=== PATIENT | female | born 1955 | race Caucasian/White ===

== ENCOUNTER 2017-01-26 07:14 | Day surgery (SDC) | payer OTHER ==
[2017-01-23 14:43] VITALS: BMI 45.7
[2017-01-26] MEDS ORDERED: MIDAZOLAM HCL 2 MG/2 ML SINGLE DOSE VIAL ONE (08:33)
[2017-01-26] MEDS ORDERED: LEVOFLOXACIN 500 MG IVPB 500 MG/100 ML BAG IVPB ONE (08:34)
[2017-01-26] MEDS ORDERED: LIDOCAINE HCL/PF 2% SDV 5ML VIAL ONE (08:34)
[2017-01-26] MEDS ORDERED: LEVOFLOXACIN 500 MG PREMIX BAG IVPB ONE (09:00)
[2017-01-26 09:38] VITALS: TEMP 97.7
[2017-01-26] MEDS ORDERED: ONDANSETRON 4 MG/2 ML VIAL IVPUSH PRN (09:56)
[2017-01-26] MEDS ORDERED: oxyCODONE HCL 5 MG TABLET PO PRN (09:56)
[2017-01-26] MEDS ORDERED: ACETAMINOPHEN 1000 MG/100 ML VIAL (NON FORMULARY) IVPB ONE (09:59)
[2017-01-26] MEDS ORDERED: LACTATED RINGERS SOLUTION 1,000 ML IV SCH (10:00)
[2017-01-26 12:30] VITALS: BP 130/70; PULSE 70
--- NOTE | 2017-01-26 15:03 | OP ---
Operative Note - Note: Operative Date: 01/26/17 Pre-Operative Diagnosis: left renal stone Operation: left eswl Findings: 13 mm x 10 mm left renal stone Post-Operative Diagnosis: Same as Pre-op Surgeon: Maninder Bridges Anesthesia: Fractional
== END 2017-01-26 12:10 | disposition home or self-care (01) ==
LOC: JASU-SURG 07:14
PROVIDERS: ATTEND Urology
PROC: 0TF4XZZ Fragmentation in Left Kidney Pelvis, External Approach (ICD-10-PCS; principal; 2017-01-26 08:45)
DX: N20.0 Calculus of kidney (principal)

== ENCOUNTER 2017-04-16 17:05 | Emergency (ER) | payer OTHER ==
--- NOTE | 2017-04-16 17:33 | PDOC ---
Rapid Medical Evaluation Time Seen by Provider: 04/16/17 17:27 Medical Evaluation: Allergies Allergy/AdvReac Type Severity Reaction Status Date / Time No Known Drug Allergies Allergy Verified 03/26/15 09:33 04/16/17 17:27 The patient presents with a chief complaint of: L shoulder pain for two weeks. Denies falling, trauma. Has not seen her PCP for this problem Taking advil liquegel with little relief. Rate the pain a 6/10. I have performed a brief in-person evaluation of this patient; Pertinent physical exam findings: ambulatory, in no respiratory distress. Pain with abduction, external rotation of L shoulder. TTP L neck, shoulder, chest. I have ordered the following: X-ray L shoulder The patient will proceed to the ED for further evaluation.
[2017-04-16 17:35] VITALS: TEMP 98.1; BMI 46.3
--- NOTE | 2017-04-16 18:29 | PDOC ---
History of Present Illness - General Chief Complaint: Pain Stated Complaint: LT ARM PAIN Time Seen by Provider: 04/16/17 17:27 History Source: Patient Exam Limitations: No Limitations - History of Present Illness Initial Comments: 04/16/17 18:28 Patient is a [61-year-old female, history of hypothyroidism, hypertension, presents with reproducible left shoulder pain for 2 weeks. Described as sharp, dull radiating out down lateral arm. Patient denies any trauma. Unable to abduct arm. Denies CP or SOB. ] Allergies: No known allergies Medications: [See medication list] Family History: Non-contributory Social History: Denies smoking, alcohol use, or IVDU Review of Systems GENERAL/CONSTITUTIONAL: [No fever or chills. No weakness. No weight change.] HEAD, EYES, EARS, NOSE AND THROAT: [No change in vision. No ear pain or discharge. No sore throat. ] CARDIOVASCULAR: [No chest pain or shortness of breath.] RESPIRATORY: [No cough, wheezing, or hemoptysis.] GASTROINTESTINAL: [No nausea, vomiting, diarrhea or constipation. No rectal bleeding.] GENITOURINARY: [No dysuria, frequency, or change in urination.] MUSCULOSKELETAL: [No joint or muscle swelling or pain. No neck or back pain. Left shoulder pain radiating down left lateral arm] SKIN : [No rash or easy bruising.] NEUROLOGIC: [No headache, vertigo, loss of consciousness, or loss of sensation.] PSYCHIATRIC: [No depression or anxiety.] ENDOCRINE: [No increased thirst. No abnormal weight change.] HEMATOLOGIC/LYMPHATIC: [No anemia, easy bleeding, or history of blood clots.] ALLERGIC/IMMUNOLOGIC: [No hives or skin allergy. No latex allergy.] Physical Exam: GENERAL: [The patient is awake, alert, and fully oriented, in no acute distress. ] EYES: [Pupils equal, round and reactive to light, extraocular movements intact, sclera anicteric, conjunctiva clear.] ENT: [Ears normal, nares patent, oropharynx clear without exudates. Moist mucous membranes. No uvula deviation] NECK: [Normal range of motion, supple without lymphadenopathy, JVD, or masses.] LUNGS: [Breath sounds equal, clear to auscultation bilaterally. No wheezes, and no crackles.] HEART: [Regular rate and rhythm, normal S1 and S2 without murmur, rub or gallop. ] ABDOMEN: [Soft, nontender, normoactive bowel sounds. No guarding, no rebound. No masses. No bruising or abrasions] RECTAL : [Guaiac negative, normal rectal tone.] MUSCULOSKELETAL: [Decreased range of motion to left arm with lateral arm pain from shoulder to elbow. Pain on palpation to the acromial bursa, No clubbing or cyanosis. No cords, erythema, or tenderness. No CVA Tenderness with fist.] NEUROLOGICAL: [Cranial nerves II through XII grossly intact. Normal speech, normal gait.] SKIN: [Warm, Dry, normal turgor, no rashes or lesions noted.] 04/16/17 19:12 Past History - Past Medical History Allergies/Adverse Reactions: Allergies Allergy/AdvReac Type Severity Reaction Status Date / Time No Known Drug Allergies Allergy Verified 04/16/17 17:28 Home Medications: Ambulatory Orders Levothyroxine [Synthroid -] 88 mcg PO DAILY 11/22/12 Metoprolol Succinate [Toprol XL -] 50 mg PO BID 11/22/12 Amlodipine Besylate 10 mg PO DAILY 03/26/15 Lisinopril/Hydrochlorothiazide [Lisinopril-Hctz 10-12.5 mg Tab] 1 each PO DAILY 03/26/15 Oxybutynin Chloride [Oxybutynin Chloride ER] 10 mg PO DAILY 01/26/17 Pantoprazole Sodium [Protonix] 40 mg PO DAILY 01/26/17 Naproxen [Naprosyn] 500 mg PO BID #20 tablet 04/16/17 Anemia: No Asthma: No Cancer: No Cardiac Disorders: Yes (INTERMITTANT CHEST PAIN-STATE) CVA: No COPD: No CHF: No Dementia: No Diabetes: No GI Disorders: Yes (GERD) Disorders: Yes (KIDNEY STONES PRESENTLY) HTN: Yes Hypercholesterolemia: No Kidney Stones: Yes Liver Disease: No Seizures: No Thyroid Disease: Yes - Surgical History Abdominal Surgery: No Appendectomy: No Cardiac Surgery: Yes (PTCA X 2 STENTS 06/09/2012) Cholecystectomy: No Lung Surgery: No Neurologic Surgery: No Orthopedic Surgery: Yes (Left Carpal Tunnel Release) - Suicide/Smoking/Psychosocial Hx Smoking Status: No Smoking History: Never smoked Number of Cigarettes Smoked Daily: 0 Hx Alcohol Use: No Drug/Substance Use Hx: No Substance Use Type: None Hx Substance Use Treatment: No *Physical Exam - Vital Signs Last Vital Signs Temp Pulse Resp BP Pulse Ox 98.1 F 80 19 172/101 99 04/16/17 17:28 04/16/17 17:28 04/16/17 17:28 04/16/17 17:28 04/16/17 17:28 Medical Decision Making - Medical Decision Making 04/16/17 18:57 A/P: Patient with pain to left shoulder, x-ray performed demonstrated tinnitus, degenerative changes on wet read. Toradol injection given, arm sling placed on. 04/16/17 19:11 Repeat BP is 179/84 I explained to patient she needs to follow-up with her PMD for further blood pressure evaluation. Patient denies any chest pain or shortness of breath. No headache. Follow-up with orthopedics for pain to left shoulder. 04/16/17 19:14 *DC/Admit/Observation/Transfer Diagnosis at time of Disposition: Shoulder pain, left Qualifiers: Chronicity: acute Qualified Code(s): M25.512 - Pain in left shoulder - Discharge Dispostion Disposition: HOME Condition at time of disposition: Stable Admit: No - Prescriptions Prescriptions: Naproxen [Naprosyn] 500 mg PO BID #20 tablet - Referrals Referrals: Dario Harris MD [Staff Physician] - - Patient Instructions Printed Discharge Instructions: DI for Shoulder Pain Additional Instructions: Please follow-up with orthopedics in one week if pain persists, do not leave the sling on all day please make sure to move arm frequently to decrease sensation of first and shoulder. Naprosyn for pain. Please follow-up with primary care doctor for blood pressure evaluation. If any headache, nausea vomiting, increased pain, any other concerns return to ER - Post Discharge Activity Forms/Work/School Notes: Back to Work
[2017-04-16] MEDS ORDERED: KETOROLAC TROMETHAMINE 60 MG/2 ML VIAL IM ONE (18:37)
[2017-04-16] MEDS ORDERED: KETOROLAC TROMETHAMINE 60 MG/2 ML VIAL ONE (18:51)
[2017-04-16 19:08] VITALS: BP 179/84; PULSE 66
== END 2017-04-16 19:17 | disposition home or self-care (01) ==
LOC: JERFT 17:05
PROC: 3E0233Z Introduction of Anti-inflammatory into Muscle, Percutaneous Approach (ICD-10-PCS; principal; 2017-04-16)
DX: I10 Essential (primary) hypertension (principal); E03.9 Hypothyroidism, unspecified; Z87.442 Personal history of urinary calculi
CPT/HCPCS: 73030-TC-LT-FY; 99281-25

== ENCOUNTER 2018-09-06 10:37 | Day surgery (SDC) | payer OTHER ==
[2018-09-03 18:17] VITALS: BMI 43.0
[2018-09-06] MEDS ORDERED: MIDAZOLAM HCL 2 MG/2 ML SINGLE DOSE VIAL ONE (12:20)
[2018-09-06] MEDS ORDERED: KETOROLAC TROMETHAMINE 30 MG/1 ML VIAL ONE (12:52)
--- NOTE | 2018-09-06 13:05 | OP ---
Operative Note - Note: Operative Date: 09/06/18 Pre-Operative Diagnosis: Left renal stone Operation: Left ESWL Findings: 7 mm upper pole Left renal stone Post-Operative Diagnosis: Same as Pre-op Surgeon: Maninder Bridges Anesthesia: Fractional Estimated Blood Loss (mls): 0 Operative Report Dictated: Yes
[2018-09-06] MEDS ORDERED: ACETAMINOPHEN 500 MG TABLET (FP) PO ONE (13:32)
[2018-09-06] MEDS ORDERED: ACETAMINOPHEN 325 MG TABLET (FP) PO ONE (13:35)
[2018-09-06 13:48] VITALS: BP 136/65; TEMP 98
[2018-09-06 15:20] VITALS: PULSE 64
--- NOTE | 2018-09-07 07:20 | OP ---
DATE OF OPERATION: 09/06/2018 PREOPERATIVE DIAGNOSIS: Left renal stone. POSTOPERATIVE DIAGNOSIS: Left renal stone. PROCEDURE: Left extracorporeal shock wave lithotripsy. ATTENDING: Yessenia Lord MD ANESTHESIA: Fractional. OPERATION WENT FOLLOWS: The patient was brought in the operating room, placed in supine position on the operating room table. Ultrasonography and fluoroscopy were performed. A 7-mm left upper pole was identified. At this point, anesthesia and preoperative antibiotics were administered. Shock wave lithotripsy was then started. Excellent fragmentation of the stone was noted under real time ultrasonography and fluoroscopy. No complications were noted. The disposition of the patient was to the recovery room. YESSENIA LORD M.D. [id number]
== END 2018-09-06 15:20 | disposition home or self-care (01) ==
LOC: JASU-SURG 10:37
PROVIDERS: ATTEND Urology
PROC: 0TF4XZZ Fragmentation in Left Kidney Pelvis, External Approach (ICD-10-PCS; principal; 2018-09-06 11:45)
DX: N20.0 Calculus of kidney (principal)

== ENCOUNTER 2020-05-28 04:27 | Day surgery (SDC) | payer OTHER ==
[2020-05-23 11:49] VITALS: BMI 46.8
[2020-05-28] MEDS ORDERED: oxyCODONE HCL 5 MG TABLET PO ONE (16:00)
[2020-05-28] MEDS ORDERED: oxyCODONE HCL 5 MG TABLET ONE (16:00)
[2020-05-28 16:46] VITALS: PULSE 77
[2020-05-28 16:49] VITALS: BP 153/82; TEMP 97.4
== END 2020-05-28 17:25 | disposition home or self-care (01) ==
LOC: JASU-SURG 04:27
PROVIDERS: ATTEND Urology
PROC: 0TF3XZZ Fragmentation in Right Kidney Pelvis, External Approach (ICD-10-PCS; principal; 2020-05-28 13:30)
DX: N20.0 Calculus of kidney (principal)

== ENCOUNTER 2020-12-24 04:36 | Day surgery (SDC) | payer OTHER ==
[2020-12-20 09:53] VITALS: BMI 38.2
[2020-12-24] MEDS ORDERED: MIDAZOLAM HCL 2 MG/2 ML SINGLE DOSE VIAL ONE (10:47)
[2020-12-24] MEDS ORDERED: ACETAMINOPHEN 325 MG TABLET (FP) ONE (13:33)
[2020-12-24] MEDS ORDERED: ACETAMINOPHEN 325 MG TABLET (FP) PO ONE (14:30)
[2020-12-24 16:09] VITALS: BP 153/69; PULSE 72; TEMP 98.2
== END 2020-12-24 14:55 | disposition home or self-care (01) ==
LOC: JASU-SURG 04:36
PROVIDERS: ATTEND Urology
PROC: 0TF4XZZ Fragmentation in Left Kidney Pelvis, External Approach (ICD-10-PCS; principal; 2020-12-24 11:00)
DX: N20.0 Calculus of kidney (principal)

== ENCOUNTER 2022-06-17 04:43 | Day surgery (SDC) | payer OTHER ==
[2022-06-13 09:07] VITALS: BMI 40.9
[2022-06-17 15:53] VITALS: BP 132/85; PULSE 66; RESP 18
[2022-06-17 16:15] VITALS: TEMP 97.1
== END 2022-06-17 16:32 | disposition home or self-care (01) ==
LOC: JASU-ENDO 04:43
PROVIDERS: ATTEND Student in an Organized Health Care Education/Training Program
PROC: 0DB78ZX Excision of Stomach, Pylorus, Via Natural or Artificial Opening Endoscopic, Diagnostic (ICD-10-PCS; 2022-06-17)
PROC: 0DB68ZX Excision of Stomach, Via Natural or Artificial Opening Endoscopic, Diagnostic (ICD-10-PCS; 2022-06-17)
PROC: 0DB38ZX Excision of Lower Esophagus, Via Natural or Artificial Opening Endoscopic, Diagnostic (ICD-10-PCS; principal; 2022-06-17 14:00)
DX: K21.00 Gastro-esophageal reflux disease with esophagitis, without bleeding (principal); K44.9 Diaphragmatic hernia without obstruction or gangrene; K29.50 Unspecified chronic gastritis without bleeding
CPT/HCPCS: 88305-TC; 88342-TC

== ENCOUNTER 2022-08-18 03:55 | Day surgery (SDC) | payer OTHER ==
[2022-08-14 13:19] VITALS: BMI 40.7
[2022-08-18] MEDS ORDERED: ONDANSETRON 4 MG/2 ML VIAL ONE (08:28)
[2022-08-18] MEDS ORDERED: MIDAZOLAM HCL 2 MG/2 ML SINGLE DOSE VIAL ONE (08:28)
[2022-08-18 09:20] VITALS: RESP 18
[2022-08-18] MEDS ORDERED: ACETAMINOPHEN 500 MG TABLET (FP) ONE (09:35)
[2022-08-18] MEDS ORDERED: ACETAMINOPHEN 500 MG TABLET (FP) PO ONE (10:00)
[2022-08-18 12:44] VITALS: BP 104/54; PULSE 76; TEMP 98.6
== END 2022-08-18 11:10 | disposition home or self-care (01) ==
LOC: JASU-SURG 03:55
PROVIDERS: ATTEND Urology
PROC: 0TF4XZZ Fragmentation in Left Kidney Pelvis, External Approach (ICD-10-PCS; principal; 2022-08-18 08:30)
DX: N20.0 Calculus of kidney (principal)

== ENCOUNTER 2023-04-26 22:49 | Observation (INO) | payer OTHER ==
[2023-04-27 00:13] LABS: BASO % 0.6 % (0-2.0); EOS % 6.6 % (0-4.5); HEMATOCRIT 31.8 % (32.4-45.2); HEMOGLOBIN 10.5 GM/dL (10.7-15.3); LYMPH % 22.7 % (8-40); MCH 30.5 pg (25.7-33.7); MEAN CELL VOLUME 92.5 fl (80-96); MEAN PLT VOLUME 7.3 fl (7.5-11.1); MONO % 9.8 % (3.8-10.2); NEUT % 60.3 % (42.8-82.8); PLATELET COUNT 146 10^3/uL (134-434); RBC 3.44 M/mm3 (3.60-5.2); RDW 14.2 % (11.6-15.6); WHITE BLOOD COUNT 9.7 K/mm3 (4.0-10.0)
[2023-04-27 00:22] LABS: INR 1.11 (0.83-1.09); PROTHROMBIN TIME (PATIENT) 12.9 SEC (9.7-13.0)
[2023-04-27 00:26] LABS: POTASSIUM 4.1 mmol/L (3.5-5.1)
[2023-04-27 00:28] LABS: CALCIUM 8.2 mg/dL (8.5-10.1)
[2023-04-27 00:29] LABS: ALBUMIN 3.2 g/dl (3.4-5.0); BLOOD UREA NITROGEN 28.4 mg/dL (7-18)
[2023-04-27 00:32] LABS: CREATININE 1.7 mg/dL (0.55-1.3)
[2023-04-27 00:33] LABS: TOT PROT 6.8 g/dl (6.4-8.2)
[2023-04-27 00:34] LABS: BILIRUBIN,TOTAL 0.2 mg/dL (0.2-1)
[2023-04-27 02:51] LABS: BASO % 0.6 % (0-2.0); EOS % 6.4 % (0-4.5); HEMATOCRIT 29.7 % (32.4-45.2); HEMOGLOBIN 9.7 GM/dL (10.7-15.3); LYMPH % 23.1 % (8-40); MCH 30.2 pg (25.7-33.7); MCHC 32.8 g/dl (32.0-36.0); MONO % 8.4 % (3.8-10.2); NEUT % 61.5 % (42.8-82.8); PLATELET COUNT 142 10^3/uL (134-434); RBC 3.23 M/mm3 (3.60-5.2); RDW 14.3 % (11.6-15.6); WHITE BLOOD COUNT 9.1 K/mm3 (4.0-10.0)
[2023-04-27] MEDS ORDERED: ACETAMINOPHEN INJECTION 100 ML IVPB ONE (05:10)
[2023-04-27] MEDS: ACETAMINOPHEN 1000 MG/100 ML BAG IVPB ONE (05:17)
[2023-04-27] MEDS: ACETAMINOPHEN 325 MG TABLET (FP) PO ONE (05:17)
[2023-04-27 05:39] LABS: PH,URINE 5.5 (5.0-8.0); URINE APPEARANCE CLEAR; URINE BILIRUBIN NEGATIVE (NEGATIVE); URINE COLOR YELLOW; URINE GLUCOSE (UA) NEGATIVE (NEGATIVE); URINE KETONE NEGATIVE (NEGATIVE); URINE LEUK ESTERASE NEGATIVE (NEGATIVE); URINE NITRITE NEGATIVE (NEGATIVE); URINE PROTEIN NEGATIVE (NEGATIVE); URINE UROBILINOGEN 0.2 mg/dL (0.2-1.0)
[2023-04-27] MEDS: SODIUM CHLORIDE 1,000 ML IV SCH (06:41)
[2023-04-27 06:54] LABS: HEMATOCRIT 29.6 % (32.4-45.2); HEMOGLOBIN 9.6 GM/dL (10.7-15.3); MCH 29.8 pg (25.7-33.7); MCHC 32.3 g/dl (32.0-36.0); MEAN CELL VOLUME 92.2 fl (80-96); MEAN PLT VOLUME 7.4 fl (7.5-11.1); PLATELET COUNT 140 10^3/uL (134-434); RBC 3.21 M/mm3 (3.60-5.2); RDW 13.9 % (11.6-15.6)
[2023-04-27] MEDS ORDERED: CHLORTHALIDONE 50 MG TABLET PO SCH (10:00)
[2023-04-27 10:20] VITALS: BMI 35.2
[2023-04-27] MEDS: PANTOPRAZOLE 40 MG TABLET PO SCH (11:07)
[2023-04-27 12:28] LABS: BASO % 0.7 % (0-2.0); EOS % 7.2 % (0-4.5); HEMATOCRIT 28.4 % (32.4-45.2); HEMOGLOBIN 9.1 GM/dL (10.7-15.3); LYMPH % 29.4 % (8-40); MCH 29.5 pg (25.7-33.7); MCHC 32.1 g/dl (32.0-36.0); MEAN CELL VOLUME 91.8 fl (80-96); MEAN PLT VOLUME 6.9 fl (7.5-11.1); MONO % 8.2 % (3.8-10.2); NEUT % 54.5 % (42.8-82.8); PLATELET COUNT 132 10^3/uL (134-434); RDW 14.1 % (11.6-15.6); WHITE BLOOD COUNT 7.7 K/mm3 (4.0-10.0)
[2023-04-27] MEDS: CHLORTHALIDONE 25 MG TABLET PO SCH (13:18)
[2023-04-27 18:07] LABS: BASO % 0.7 % (0-2.0); EOS % 9.1 % (0-4.5); HEMATOCRIT 30.7 % (32.4-45.2); HEMOGLOBIN 10.1 GM/dL (10.7-15.3); LYMPH % 27.7 % (8-40); MCH 30.3 pg (25.7-33.7); MCHC 32.9 g/dl (32.0-36.0); MEAN CELL VOLUME 91.9 fl (80-96); MEAN PLT VOLUME 7.1 fl (7.5-11.1); MONO % 6.1 % (3.8-10.2); NEUT % 56.4 % (42.8-82.8); PLATELET COUNT 148 10^3/uL (134-434); RBC 3.34 M/mm3 (3.60-5.2); RDW 14.1 % (11.6-15.6); WHITE BLOOD COUNT 7.5 K/mm3 (4.0-10.0)
[2023-04-27] MEDS: ATORVASTATIN CA 20 MG TABLET (FP) PO SCH (21:19)
[2023-04-28 09:17] LABS: BASO % 0.5 % (0-2.0); EOS % 7.7 % (0-4.5); LYMPH % 18.7 % (8-40); MCH 30.4 pg (25.7-33.7); MCHC 33.2 g/dl (32.0-36.0); MEAN CELL VOLUME 91.8 fl (80-96); MEAN PLT VOLUME 7.1 fl (7.5-11.1); NEUT % 65.1 % (42.8-82.8); PLATELET COUNT 142 10^3/uL (134-434); RBC 3.27 M/mm3 (3.60-5.2); RDW 14.1 % (11.6-15.6); WHITE BLOOD COUNT 7.5 K/mm3 (4.0-10.0)
[2023-04-28 10:01] LABS: POTASSIUM 4.9 mmol/L (3.5-5.1)
[2023-04-28 10:12] LABS: CALCIUM 9.2 mg/dL (8.5-10.1)
[2023-04-28 10:13] LABS: ALBUMIN 3.2 g/dl (3.4-5.0); MAGNESIUM 1.9 mg/dL (1.8-2.4)
[2023-04-28 10:16] LABS: CREATININE 1.3 mg/dL (0.55-1.3); PHOSPHOROUS 3.6 mg/dL (2.5-4.9)
[2023-04-28 10:17] LABS: BILIRUBIN,TOTAL 0.3 mg/dL (0.2-1); TOT PROT 6.8 g/dl (6.4-8.2)
[2023-04-28 10:43] LABS: BLOOD UREA NITROGEN 19.3 mg/dL (7-18)
[2023-04-28] MEDS: ACETAMINOPHEN 1000 MG/100 ML BAG IVPB ONE (10:58)
[2023-04-28] MEDS: amLODIPine BESYLATE 10 MG TABLET (FP) PO SCH (10:59)
[2023-04-28] MEDS ORDERED: POLYETHYLENE GLYCOL (HEALTHYLAX) 3350 17 GM PACKET PO PRN (14:14)
[2023-04-28] MEDS: ASPIRIN COATED 81 MG TABLET.EC PO SCH (14:32)
[2023-04-28 18:01] LABS: HEMATOCRIT 32.8 % (32.4-45.2); HEMOGLOBIN 10.5 GM/dL (10.7-15.3); MCH 29.7 pg (25.7-33.7); MCHC 32.2 g/dl (32.0-36.0); MEAN CELL VOLUME 92.3 fl (80-96); MEAN PLT VOLUME 7.5 fl (7.5-11.1); PLATELET COUNT 154 10^3/uL (134-434); RBC 3.55 M/mm3 (3.60-5.2); WHITE BLOOD COUNT 8.3 K/mm3 (4.0-10.0)
[2023-04-28] MEDS: POLYETHYLENE GLYCOL (HEALTHYLAX) 3350 17 GM PACKET PO SCH (18:49)
[2023-04-29 06:52] VITALS: RESP 18; TEMP 98.4
[2023-04-29 08:33] LABS: BASO % 0.5 % (0-2.0); EOS % 5.9 % (0-4.5); HEMATOCRIT 30.3 % (32.4-45.2); HEMOGLOBIN 10.1 GM/dL (10.7-15.3); LYMPH % 25.3 % (8-40); MCH 30.5 pg (25.7-33.7); MCHC 33.3 g/dl (32.0-36.0); MEAN CELL VOLUME 91.6 fl (80-96); MEAN PLT VOLUME 7.3 fl (7.5-11.1); MONO % 7.5 % (3.8-10.2); NEUT % 60.8 % (42.8-82.8); PLATELET COUNT 142 10^3/uL (134-434); RDW 13.9 % (11.6-15.6); WHITE BLOOD COUNT 7.7 K/mm3 (4.0-10.0)
[2023-04-29 09:02] LABS: POTASSIUM 4.2 mmol/L (3.5-5.1)
[2023-04-29 09:06] LABS: CALCIUM 9.1 mg/dL (8.5-10.1)
[2023-04-29 09:07] LABS: BLOOD UREA NITROGEN 21.3 mg/dL (7-18)
[2023-04-29 09:10] LABS: CREATININE 1.4 mg/dL (0.55-1.3)
[2023-04-29] MEDS: ACETAMINOPHEN 325 MG TABLET (FP) PO PRN (12:04)
[2023-04-29 14:25] VITALS: BP 128/61; PULSE 82
== END 2023-04-29 17:50 | disposition home or self-care (01) ==
LOC: JER 22:49 → JERBED 04-27 03:41 → J7W 04-27 08:44
PROVIDERS: ADMIT Internal Medicine; ATTEND Internal Medicine
PROC: 3E033NZ Introduction of Analgesics, Hypnotics, Sedatives into Peripheral Vein, Percutaneous Approach (ICD-10-PCS; principal; 2023-04-27)
DX: K92.1 Melena (principal); K57.91 Diverticulosis of intestine, part unspecified, without perforation or abscess with bleeding; K63.5 Polyp of colon; D64.9 Anemia, unspecified; I73.9 Peripheral vascular disease, unspecified; K21.9 Gastro-esophageal reflux disease without esophagitis; E78.5 Hyperlipidemia, unspecified; I10 Essential (primary) hypertension; Z87.442 Personal history of urinary calculi
CPT/HCPCS: 36415; 80048; 80053; 81003; 82272; 83735; 84100; 84439; 84443; 84484; 85025; 85027; 85610; 86850; 86900; 86901; 93005; 93010; 96361; 96374; 99285-25; G0378; J0131

== ENCOUNTER 2024-08-20 13:37 | Inpatient (IN) | payer OTHER ==
[2024-08-20 14:58] LABS: ABSOLUTE IMMATURE GRANULOCYTES 0.04 x10^3/uL (0.0-0.031); BASOPHILS # 0.05 x10^3/uL (0.01-0.08); EOSINOPHIL % 5.3 % (0.7-5.8); EOSINOPHILS # 0.51 x10^3/uL (0.04-0.36); MCHC 29.8 g/dl (32.2-35.5); MEAN CELL VOLUME 97.1 fl (79.4-94.8); MEAN PLT VOLUME 9.7 fl (9.4-12.3); MONOCYTE # 0.71 x10^3/uL (0.24-0.86); MONOCYTE % 7.3 % (4.7-12.5); RDW 16.2 % (12.4-16.4)
[2024-08-20 15:23] LABS: CO2 22.0 mmol/L (21-32); GLUCOSE,RANDOM 100.0 mg/dL (74-106)
[2024-08-20 15:26] LABS: CREATININE 2.2 mg/dL (0.55-1.3); SGOT/AST 21.0 U/L (15-37); SGPT/ALT 21.0 U/L (13-61)
[2024-08-20 15:27] LABS: TOT PROT 6.1 g/dl (6.4-8.2)
[2024-08-20 15:29] LABS: ALK PHOS 97.0 U/L (45-117)
[2024-08-20 15:31] LABS: N-TERMINAL BNP 259.4 pg/ml (5-125)
[2024-08-20 15:38] LABS: EPI CELLS >36 /uL (0-25.1); HYALINE CASTS 0 /uL (0-3.1); URINE APPEARANCE CLEAR; URINE BACTERIA 749 /uL (0-1359); URINE BILIRUBIN NEGATIVE (NEGATIVE); URINE COLOR YELLOW; URINE GLUCOSE (UA) NEGATIVE (NEGATIVE); URINE KETONE NEGATIVE (NEGATIVE); URINE LEUK ESTERASE 1+ (NEGATIVE); URINE NITRITE NEGATIVE (NEGATIVE); URINE PROTEIN TRACE (NEGATIVE); URINE RBC 8 /uL (0-23.9); URINE UROBILINOGEN 0.2 mg/dL (0.2-1.0); URINE WBC 33 /uL (0-25.8)
[2024-08-20] MEDS ORDERED: DEXTROSE 50%-WATER 25 GM/50 ML DISP.SYRIN ONE (16:28)
[2024-08-20] MEDS ORDERED: SODIUM ZIRCONIUM CYCLOSILICATE (LOKELMA) 10 GM PACKET ONE (16:28)
[2024-08-20] MEDS ORDERED: INSULIN REGULAR HUMAN 100 UNITS/ML *VIAL ONE (16:29)
[2024-08-20] MEDS: DEXTROSE 50%-WATER - 25 GM/50 ML VIAL IVPUSH ONE (17:01)
[2024-08-20] MEDS: INSULIN REGULAR HUMAN 100 UNITS/ML *VIAL IVPUSH ONE (17:01)
[2024-08-20] MEDS ORDERED: CEFTRIAXONE 1 GM/50 ML BAG ONE (17:04)
[2024-08-20] MEDS: SODIUM ZIRCONIUM CYCLOSILICATE (LOKELMA) 5 GM PACKET PO ONE (17:10)
[2024-08-20 18:51] LABS: CO2 21.0 mmol/L (21-32); GLUCOSE,RANDOM 82.0 mg/dL (74-106)
[2024-08-20 18:54] LABS: CREATININE 2.0 mg/dL (0.55-1.3)
[2024-08-20] MEDS ORDERED: DEXTROSE 5%-0.45% SALINE 1,000 ML IV SCH (20:30)
[2024-08-20] MEDS: ATORVASTATIN CA 20 MG TABLET (FP) PO SCH (21:53)
[2024-08-20] MEDS: SODIUM CHLORIDE 1,000 ML IV SCH (21:53)
[2024-08-20] MEDS: DEXTROSE 5%-0.45% SALINE 1,000 ML IV SCH (21:53)
[2024-08-20] MEDS: HEPARIN NA (PORCINE) 5,000 UNITS/ML 1ML VIAL SQ SCH (21:53)
[2024-08-20] MEDS: GABAPENTIN 300 MG CAPSULE PO SCH (21:53)
[2024-08-20] MEDS ORDERED: ATORVASTATIN CA 20 MG TABLET (FP) ONE (21:57)
[2024-08-20] MEDS ORDERED: GABAPENTIN 300 MG CAPSULE ONE (21:57)
[2024-08-20] MEDS ORDERED: HEPARIN NA (PORCINE) 5,000 UNITS/ML 1ML VIAL ONE (21:58)
[2024-08-21 00:39] VITALS: BMI 34.5
[2024-08-21 08:47] LABS: MCHC 29.9 g/dl (32.2-35.5); MEAN CELL VOLUME 96.9 fl (79.4-94.8); MEAN PLT VOLUME 9.1 fl (9.4-12.3); RDW 16.2 % (12.4-16.4)
[2024-08-21 09:15] LABS: CO2 22.0 mmol/L (21-32); GLUCOSE,RANDOM 90.0 mg/dL (74-106)
[2024-08-21 09:17] LABS: IRON SERUM 28.0 ug/dL (50-175)
[2024-08-21 09:18] LABS: CREATININE 1.7 mg/dL (0.55-1.3); SGPT/ALT 19.0 U/L (13-61)
[2024-08-21 09:19] LABS: SGOT/AST 19.0 U/L (15-37)
[2024-08-21 09:20] LABS: TOT PROT 6.2 g/dl (6.4-8.2)
[2024-08-21 09:21] LABS: ALK PHOS 102.0 U/L (45-117)
[2024-08-21] MEDS: ASPIRIN COATED 81 MG TABLET.EC PO SCH (09:28)
[2024-08-21] MEDS: traZODone HCL 50 MG TABLET (FP) PO SCH (09:29)
[2024-08-21] MEDS: PANTOPRAZOLE 40 MG TABLET PO SCH (09:29)
[2024-08-21] MEDS: CEFTRIAXONE 1 GM in DEXTROSE 5%-WATER - 50 ML IVPB SCH (09:29)
[2024-08-21] MEDS: LEVOTHYROXINE NA 125 MCG TABLET (FP) PO SCH (09:29)
[2024-08-21] MEDS: ACETAMINOPHEN 325 MG TABLET (FP) PO PRN (13:46)
[2024-08-21] MEDS ORDERED: SODIUM ZIRCONIUM CYCLOSILICATE (LOKELMA) 5 GM PACKET PO ONE (16:18)
[2024-08-21] MEDS: SODIUM CHLORIDE 1,000 ML IV SCH (18:41)
[2024-08-21] MEDS: IRON SUCROSE INJECTION 100 MG in SODIUM CHLORIDE 95 ML IVPB ONE (21:42)
[2024-08-21] MEDS: TAMSULOSIN HCL 0.4 MG CAP PO ONE (21:43)
[2024-08-22 08:30] LABS: ABSOLUTE IMMATURE GRANULOCYTES 0.03 x10^3/uL (0.0-0.031); BASOPHILS # 0.05 x10^3/uL (0.01-0.08); EOSINOPHIL % 7.4 % (0.7-5.8); EOSINOPHILS # 0.53 x10^3/uL (0.04-0.36); MCHC 29.7 g/dl (32.2-35.5); MEAN CELL VOLUME 95.6 fl (79.4-94.8); MEAN PLT VOLUME 9.1 fl (9.4-12.3); MONOCYTE # 0.73 x10^3/uL (0.24-0.86); MONOCYTE % 10.2 % (4.7-12.5); RDW 16.0 % (12.4-16.4)
[2024-08-22 08:47] LABS: INR 1.04 (0.83-1.09); PROTHROMBIN TIME (PATIENT) 11.3 SEC (9.7-13.0)
[2024-08-22 08:57] LABS: GLUCOSE,RANDOM 95.0 mg/dL (74-106)
[2024-08-22 08:58] LABS: CO2 22.0 mmol/L (21-32)
[2024-08-22 09:00] LABS: CREATININE 1.5 mg/dL (0.55-1.3); SGOT/AST 18.0 U/L (15-37); SGPT/ALT 22.0 U/L (13-61)
[2024-08-22 09:01] LABS: TOT PROT 6.3 g/dl (6.4-8.2)
[2024-08-22 09:03] LABS: ALK PHOS 83.0 U/L (45-117)
[2024-08-22] MEDS: CEFTRIAXONE 2 GM-D5W BAG 2 GM/50 ML BAG IVPB SCH (09:15)
[2024-08-22 09:24] LABS: ERYTHROCYTE SEDIMENTATION RATE 46 mm/hr (0-30)
[2024-08-22 19:58] LABS: HCV DIAGNOSTIC IN-HOUSE W/RFLX NON-REACTIVE (NONREACTIVE)
[2024-08-22 20:11] LABS: HIV INTERPRETATION NEGATIVE (NEGATIVE)
[2024-08-23 08:45] LABS: ABSOLUTE IMMATURE GRANULOCYTES 0.13 x10^3/uL (0.0-0.031); BASOPHILS # 0.08 x10^3/uL (0.01-0.08); EOSINOPHIL % 7.0 % (0.7-5.8); EOSINOPHILS # 0.60 x10^3/uL (0.04-0.36); MCHC 30.4 g/dl (32.2-35.5); MEAN CELL VOLUME 94.6 fl (79.4-94.8); MEAN PLT VOLUME 8.7 fl (9.4-12.3); MONOCYTE # 0.89 x10^3/uL (0.24-0.86); MONOCYTE % 10.4 % (4.7-12.5); RDW 15.6 % (12.4-16.4)
[2024-08-23 09:10] LABS: GLUCOSE,RANDOM 104.0 mg/dL (74-106)
[2024-08-23 09:12] LABS: CO2 21.0 mmol/L (21-32)
[2024-08-23 09:13] LABS: CREATININE 1.5 mg/dL (0.55-1.3); SGPT/ALT 25.0 U/L (13-61)
[2024-08-23 09:15] LABS: SGOT/AST 23.0 U/L (15-37); TOT PROT 6.6 g/dl (6.4-8.2)
[2024-08-23 09:16] LABS: ALK PHOS 89.0 U/L (45-117)
[2024-08-23] MEDS ORDERED: IRON SUCROSE INJECTION 200 MG in SODIUM CHLORIDE 100 ML IVPB ONE (11:51)
[2024-08-23] MEDS: IRON SUCROSE INJECTION 200 MG in SODIUM CHLORIDE 100 ML IVPB ONE (13:16)
[2024-08-23] MEDS: CYANOCOBALAMIN (VITAMIN B-12) 1000 MCG/1 ML VIAL IM ONE (13:35)
[2024-08-24] MEDS ORDERED: ONDANSETRON 4 MG/2 ML VIAL ONE (07:09)
[2024-08-24] MEDS ORDERED: DEXAMETHASONE SOD PHOSPHATE 4 MG/1 ML VIAL ONE (07:09)
[2024-08-24] MEDS ORDERED: LIDOCAINE HCL/PF 2% SDV 5ML VIAL ONE (07:09)
[2024-08-24] MEDS ORDERED: GLYCOPYRROLATE 0.2 MG/1 ML VIAL ONE (07:09)
[2024-08-24] MEDS ORDERED: PROPOFOL 20 ML ONE (07:10)
[2024-08-24] MEDS ORDERED: MIDAZOLAM HCL 2 MG/2 ML SINGLE DOSE VIAL ONE (07:13)
[2024-08-24] MEDS ORDERED: ACETAMINOPHEN INJECTION 100 ML ONE (07:19)
[2024-08-24] MEDS: GENTAMICIN SO4 80 MG/2 ML VIAL IVPB ONE (07:22)
[2024-08-24] MEDS ORDERED: GENTAMICIN SO4 80 MG/2 ML VIAL ONE (07:22)
[2024-08-24] MEDS ORDERED: LACTATED RINGERS SOLUTION 1,000 ML IV SCH (07:30)
[2024-08-24] MEDS: SODIUM CHLORIDE 1,000 ML IV SCH (08:35)
[2024-08-24] MEDS: PANTOPRAZOLE 40 MG TABLET PO SCH (09:14)
[2024-08-24] MEDS: traZODone HCL 50 MG TABLET (FP) PO SCH (09:14)
[2024-08-24] MEDS: GABAPENTIN 300 MG CAPSULE PO SCH (09:15)
[2024-08-24] MEDS: LEVOTHYROXINE NA 125 MCG TABLET (FP) PO SCH (09:15)
[2024-08-24] MEDS: ASPIRIN COATED 81 MG TABLET.EC PO SCH (09:15)
[2024-08-24 11:20] LABS: ABSOLUTE IMMATURE GRANULOCYTES 0.14 x10^3/uL (0.0-0.031); BASOPHILS # 0.05 x10^3/uL (0.01-0.08); EOSINOPHIL % 2.2 % (0.7-5.8); EOSINOPHILS # 0.21 x10^3/uL (0.04-0.36); MCHC 29.6 g/dl (32.2-35.5); MEAN CELL VOLUME 96.8 fl (79.4-94.8); MEAN PLT VOLUME 8.9 fl (9.4-12.3); MONOCYTE # 0.18 x10^3/uL (0.24-0.86); MONOCYTE % 1.9 % (4.7-12.5); RDW 15.9 % (12.4-16.4)
[2024-08-24] MEDS: ACETAMINOPHEN 325 MG TABLET (FP) PO PRN (11:23)
[2024-08-24 12:03] LABS: CO2 21.0 mmol/L (21-32)
[2024-08-24 12:04] LABS: GLUCOSE,RANDOM 141.0 mg/dL (74-106)
[2024-08-24 12:07] LABS: CREATININE 1.5 mg/dL (0.55-1.3)
[2024-08-24] MEDS ORDERED: IRON SUCROSE INJECTION 200 MG in SODIUM CHLORIDE 100 ML IVPB ONE (14:00)
[2024-08-24] MEDS: IRON SUCROSE INJECTION 200 MG in SODIUM CHLORIDE 100 ML IVPB ONE (14:14)
[2024-08-24] MEDS: ATORVASTATIN CA 20 MG TABLET (FP) PO SCH (21:10)
[2024-08-25 07:56] LABS: MCHC 30.5 g/dl (32.2-35.5); MEAN CELL VOLUME 96.1 fl (79.4-94.8); MEAN PLT VOLUME 9.1 fl (9.4-12.3); RDW 15.9 % (12.4-16.4)
[2024-08-25 09:35] LABS: CO2 20.0 mmol/L (21-32); GLUCOSE,RANDOM 93.0 mg/dL (74-106)
[2024-08-25 09:37] LABS: CREATININE 1.5 mg/dL (0.55-1.3)
[2024-08-25] MEDS: predniSONE 20 MG TABLET (UD) PO SCH (11:35)
[2024-08-25] MEDS ORDERED: IRON SUCROSE INJECTION 200 MG in SODIUM CHLORIDE 100 ML IVPB ONE (14:00)
[2024-08-25] MEDS: IRON SUCROSE INJECTION 200 MG in SODIUM CHLORIDE 100 ML IVPB ONE (14:00)
[2024-08-25 15:11] LABS: IG A QN SERUM. 189 mg/dL (87-352)
[2024-08-25 18:25] VITALS: RESP 18
[2024-08-26 08:48] LABS: ABSOLUTE IMMATURE GRANULOCYTES 0.11 x10^3/uL (0.0-0.031); BASOPHILS # 0.05 x10^3/uL (0.01-0.08); EOSINOPHIL % 4.1 % (0.7-5.8); EOSINOPHILS # 0.43 x10^3/uL (0.04-0.36); MCHC 30.2 g/dl (32.2-35.5); MEAN CELL VOLUME 95.5 fl (79.4-94.8); MEAN PLT VOLUME 8.9 fl (9.4-12.3); MONOCYTE # 1.10 x10^3/uL (0.24-0.86); MONOCYTE % 10.5 % (4.7-12.5); RDW 16.1 % (12.4-16.4)
[2024-08-26 09:41] LABS: CO2 23.0 mmol/L (21-32); GLUCOSE,RANDOM 84.0 mg/dL (74-106)
[2024-08-26 09:44] LABS: CREATININE 1.4 mg/dL (0.55-1.3)
[2024-08-26] MEDS: MAGNESIUM OXIDE 400 MG TABLET (FP) PO ONE (11:04)
[2024-08-26] MEDS: MAGNESIUM SULF 50% (8.12 MEQ/2 ML-1 GM VIAL) IVPB ONE (11:09)
[2024-08-26] MEDS: predniSONE 20 MG TABLET (UD) PO SCH (11:09)
[2024-08-26] MEDS: LACTULOSE 20 GM/30 ML UDC (FOR ORAL USE ONLY) PO ONE (13:35)
[2024-08-26 14:36] VITALS: BP 118/60; PULSE 73; TEMP 99
[2024-08-29 18:11] LABS: METHYLMALONIC ACID- 504 nmol/L (0-378)
[2024-09-02 13:10] LABS: CA OXALATE MONOHYDR. 100 % (.); SIZE 3x3 mm (.); WEIGHT 10 mg (.)
== END 2024-08-26 14:45 | disposition home or self-care (01) | DRG 660 ==
LOC: JER 13:37 → JERBED 19:32 → UNDOADMOB 19:32 → INTOOBSV 19:32 → JERBED 08-21 00:04 → J6S 08-21 00:04 → JERBED 08-21 17:11 → J6S 08-21 17:11 → OBSVTOIN 08-25 14:53
PROVIDERS: ADMIT Hospitalist; ATTEND Internal Medicine
PROC: 0TF Urinary System, Fragmentation (ICD-10-PCS; 2024-08-24)
PROC: 0TJB8ZZ Inspection of Bladder, Via Natural or Artificial Opening Endoscopic (ICD-10-PCS; 2024-08-24)
PROC: 0T778DZ Dilation of Left Ureter with Intraluminal Device, Via Natural or Artificial Opening Endoscopic (ICD-10-PCS; principal; 2024-08-24 07:00)
DX: N20.1 Calculus of ureter (principal); N17.9 Acute kidney failure, unspecified; N39.0 Urinary tract infection, site not specified; D50.9 Iron deficiency anemia, unspecified; D69.6 Thrombocytopenia, unspecified; I10 Essential (primary) hypertension; E78.5 Hyperlipidemia, unspecified; I12.9 Hypertensive chronic kidney disease with stage 1 through stage 4 chronic kidney disease, or unspecified chronic kidney disease; E03.9 Hypothyroidism, unspecified; E66.9 Obesity, unspecified; Z68.34 Body mass index [BMI] 34.0-34.9, adult; N18.9 Chronic kidney disease, unspecified; I73.9 Peripheral vascular disease, unspecified; K21.9 Gastro-esophageal reflux disease without esophagitis
CPT/HCPCS: 36415; 71045-TC-FY; 72148-TC; 74176-TC; 76000-TC-FY; 76775-TC; 80048; 80053; 81003; 82360; 82607; 82728; 82746; 82784; 82962; 83010; 83540; 83550; 83735; 83880; 83921; 84100; 84155; 84165; 84436; 84443; 84484; 85025; 85027; 85610; 85651; 86140; 86334; 86803; 87040; 87086; 87389; 88300-TC; 93005; 93010; 93970-TC; 94760; 97116-GP; 97161-GP; 99285-25; C1758; C2617; G0378; J1756

== ENCOUNTER 2024-10-03 13:24 | Inpatient (IN) | payer OTHER ==
[2024-10-03 14:47] LABS: MCHC 29.7 g/dl (32.2-35.5); MEAN CELL VOLUME 102.3 fl (79.4-94.8); MEAN PLT VOLUME 8.8 fl (9.4-12.3); RDW 16.0 % (12.4-16.4)
[2024-10-03 14:50] LABS: BG HCT 32.0 % (32.4-45.2); VENOUS BASE EXCESS -10.3 mmol/L (-2-2); VENOUS O2 SATURATION 50.8 % (70-80); VENOUS PCO2 41.3 mmHg (38-52); VENOUS PH 7.226 (7.310-7.410)
[2024-10-03 14:54] LABS: INR 1.05 (0.83-1.09); PROTHROMBIN TIME (PATIENT) 11.4 SEC (9.7-13.0)
[2024-10-03 14:57] LABS: ACTIVATED PTT 29.1 SECONDS (25.2-36.5)
[2024-10-03] MEDS: LACTATED RINGERS SOLUTION 1000 ML INFUS.BAG IV ONE (15:00)
[2024-10-03] MEDS: SODIUM CHLORIDE 0.9% 500 ML INFUS.BAG IV ONE ×2 (15:00→19:50)
[2024-10-03 15:07] LABS: GLUCOSE,RANDOM 92.0 mg/dL (74-106)
[2024-10-03 15:08] LABS: TOT PROT 5.9 g/dl (6.4-8.2)
[2024-10-03 15:09] LABS: CO2 18.0 mmol/L (21-32)
[2024-10-03 15:10] LABS: ALK PHOS 88.0 U/L (40-150)
[2024-10-03 15:13] LABS: CREATININE 2.76 mg/dL (0.55-1.3); SGOT/AST 24.0 U/L (5-34); SGPT/ALT 13.0 U/L (0-55)
[2024-10-03 16:16] LABS: HIV INTERPRETATION NEGATIVE (NEGATIVE)
[2024-10-03 16:17] LABS: HCV DIAGNOSTIC IN-HOUSE W/RFLX NON-REACTIVE (NONREACTIVE)
[2024-10-03] MEDS ORDERED: CALCIUM GLUCONATE 10% - 1,000 MG/10 ML VIAL ONE (16:57)
[2024-10-03] MEDS: ALBUTEROL SULFATE 0.021% (0.63 MG/3 ML) VIAL.NEB NEB ONE (17:35)
[2024-10-03] MEDS: CALCIUM GLUCONATE 10% - 1,000 MG/10 ML VIAL IVPB ONE (17:35)
[2024-10-03] MEDS ORDERED: SODIUM ZIRCONIUM CYCLOSILICATE (LOKELMA) 5 GM PACKET ONE (17:39)
[2024-10-03] MEDS: SODIUM ZIRCONIUM CYCLOSILICATE (LOKELMA) 5 GM PACKET PO ONE (17:40)
[2024-10-03 17:48] LABS: URINE APPEARANCE CLEAR; URINE BILIRUBIN NEGATIVE (NEGATIVE); URINE COLOR YELLOW; URINE GLUCOSE (UA) NEGATIVE (NEGATIVE); URINE KETONE NEGATIVE (NEGATIVE); URINE LEUK ESTERASE NEGATIVE (NEGATIVE); URINE NITRITE NEGATIVE (NEGATIVE); URINE PROTEIN NEGATIVE (NEGATIVE); URINE UROBILINOGEN 0.2 mg/dL (0.2-1.0)
[2024-10-03] MEDS ORDERED: CALCIUM GLUC IN NACL, ISO-OSM 1 GM/50 ML BAG IVPB ONE (17:53)
[2024-10-03] MEDS: SODIUM CHLORIDE 1,000 ML IV SCH (19:42)
[2024-10-03] MEDS: SODIUM BICARBONATE 650 MG TABLET PO SCH (20:16)
[2024-10-03] MEDS: ATORVASTATIN CA 20 MG TABLET (FP) PO SCH (22:26)
[2024-10-03] MEDS: HEPARIN NA (PORCINE) 5,000 UNITS/ML 1ML VIAL SQ SCH (22:26)
[2024-10-03] MEDS: GABAPENTIN 300 MG CAPSULE PO SCH (22:26)
[2024-10-03] MEDS: MELATONIN 5 MG TABLETS PO ONE (23:16)
[2024-10-04 07:00] LABS: ABSOLUTE IMMATURE GRANULOCYTES 0.02 x10^3/uL (0.0-0.031); BASOPHILS # 0.04 x10^3/uL (0.01-0.08); EOSINOPHIL % 5.3 % (0.7-5.8); EOSINOPHILS # 0.35 x10^3/uL (0.04-0.36); MCHC 29.3 g/dl (32.2-35.5); MEAN CELL VOLUME 102.8 fl (79.4-94.8); MEAN PLT VOLUME 9.2 fl (9.4-12.3); MONOCYTE # 0.78 x10^3/uL (0.24-0.86); MONOCYTE % 11.8 % (4.7-12.5); RDW 16.1 % (12.4-16.4)
[2024-10-04] MEDS: PANTOPRAZOLE 40 MG TABLET PO SCH (10:13)
[2024-10-04] MEDS: LEVOTHYROXINE NA 125 MCG TABLET (FP) PO SCH (10:13)
[2024-10-04] MEDS: ASPIRIN COATED 81 MG TABLET.EC PO SCH (10:13)
[2024-10-04] MEDS: LIPASE/PROTEASE/AMYLASE 36,000 UNIT CAPSULE PO SCH (10:13)
[2024-10-04] MEDS: FERROUS SO4 325 MG TABLET (FP) PO SCH (10:13)
[2024-10-04] MEDS: CYANOCOBALAMIN (VITAMIN B-12) 100 MCG TABLET PO SCH (10:14)
[2024-10-04 10:41] LABS: GLUCOSE,RANDOM 97.0 mg/dL (74-106)
[2024-10-04 10:43] LABS: CO2 17.0 mmol/L (21-32)
[2024-10-04 10:47] LABS: CREATININE 2.69 mg/dL (0.55-1.3)
[2024-10-04] MEDS: FUROSEMIDE 40 MG/4 ML INJECTABLE VIAL IVPUSH ONE (11:46)
[2024-10-04 13:06] VITALS: BMI 42.9
[2024-10-04] MEDS: CYANOCOBALAMIN (VITAMIN B-12) 1000 MCG/1 ML VIAL IM SCH (14:24)
[2024-10-04] MEDS ORDERED: INSULIN REGULAR HUMAN 100 UNITS/ML *VIAL IVPUSH ONE (14:45)
[2024-10-04] MEDS ORDERED: DEXTROSE 50%-WATER - 25 GM/50 ML VIAL IVPUSH ONE (14:45)
[2024-10-04] MEDS ORDERED: SODIUM ZIRCONIUM CYCLOSILICATE (LOKELMA) 5 GM PACKET PO ONE (15:38)
[2024-10-04 15:55] LABS: GLUCOSE,RANDOM 120 mg/dL (74-106)
[2024-10-04 15:56] LABS: CO2 17 mmol/L (21-32)
[2024-10-04 16:00] LABS: CREATININE 2.37 mg/dL (0.55-1.3)
[2024-10-04] MEDS: INSULIN REGULAR HUMAN 100 UNITS/ML *VIAL IVPUSH ONE (16:00)
[2024-10-04] MEDS: DEXTROSE 50%-WATER 25 GM/50 ML DISP.SYRIN IVPUSH ONE (16:00)
[2024-10-04] MEDS: ACETAMINOPHEN 325 MG TABLET (FP) PO PRN (17:06)
[2024-10-04 19:23] LABS: IRON SERUM 23 ug/dL (50-175)
[2024-10-04] MEDS: SODIUM ZIRCONIUM CYCLOSILICATE (LOKELMA) 5 GM PACKET PO SCH (22:16)
[2024-10-05] MEDS: MELATONIN 5 MG TABLETS PO ONE ×2 (00:10→22:48)
[2024-10-05 06:57] LABS: MCHC 29.8 g/dl (32.2-35.5); MEAN CELL VOLUME 101.5 fl (79.4-94.8); MEAN PLT VOLUME 9.3 fl (9.4-12.3); RDW 15.8 % (12.4-16.4)
[2024-10-05 07:54] LABS: GLUCOSE,RANDOM 98.0 mg/dL (74-106)
[2024-10-05 07:55] LABS: TOT PROT 5.8 g/dl (6.4-8.2)
[2024-10-05 07:56] LABS: CO2 20.0 mmol/L (21-32)
[2024-10-05 08:00] LABS: SGOT/AST 21.0 U/L (5-34)
[2024-10-05 08:01] LABS: CREATININE 1.97 mg/dL (0.55-1.3)
[2024-10-05 08:16] LABS: ALK PHOS 76.0 U/L (40-150); SGPT/ALT 13.0 U/L (0-55)
[2024-10-05] MEDS: FUROSEMIDE 40 MG/4 ML INJECTABLE VIAL IVPUSH SCH (09:39)
[2024-10-05] MEDS ORDERED: SODIUM ZIRCONIUM CYCLOSILICATE (LOKELMA) 5 GM PACKET PO SCH (10:00)
[2024-10-05] MEDS: POLYETHYLENE GLYCOL (HEALTHYLAX) 3350 17 GM PACKET PO SCH (12:43)
[2024-10-06 06:46] LABS: MCHC 30.7 g/dl (32.2-35.5); MEAN CELL VOLUME 98.5 fl (79.4-94.8); MEAN PLT VOLUME 9.3 fl (9.4-12.3); RDW 15.3 % (12.4-16.4)
[2024-10-06 07:20] LABS: GLUCOSE,RANDOM 99.0 mg/dL (74-106); TOT PROT 6.0 g/dl (6.4-8.2)
[2024-10-06 07:22] LABS: CO2 24.0 mmol/L (21-32)
[2024-10-06 07:23] LABS: ALK PHOS 77.0 U/L (40-150)
[2024-10-06 07:26] LABS: CREATININE 1.76 mg/dL (0.55-1.3); SGOT/AST 18.0 U/L (5-34); SGPT/ALT 13.0 U/L (0-55)
[2024-10-06] MEDS: ACETAMINOPHEN 325 MG TABLET (FP) PO PRN (15:34)
[2024-10-06] MEDS: MELATONIN 5 MG TABLETS PO ONE (21:09)
[2024-10-06] MEDS: ACETAMINOPHEN 1000 MG/100 ML BAG IVPB ONE (21:43)
[2024-10-07 07:01] LABS: MCHC 29.8 g/dl (32.2-35.5); MEAN CELL VOLUME 98.3 fl (79.4-94.8); MEAN PLT VOLUME 9.4 fl (9.4-12.3); RDW 14.8 % (12.4-16.4)
[2024-10-07 07:06] LABS: GLUCOSE,RANDOM 99.0 mg/dL (74-106); TOT PROT 6.4 g/dl (6.4-8.2)
[2024-10-07 07:08] LABS: CO2 25.0 mmol/L (21-32)
[2024-10-07 07:09] LABS: ALK PHOS 80.0 U/L (40-150)
[2024-10-07 07:12] LABS: CREATININE 1.7 mg/dL (0.55-1.3); SGOT/AST 21.0 U/L (5-34); SGPT/ALT 17.0 U/L (0-55)
[2024-10-07 09:21] VITALS: RESP 18
[2024-10-07] MEDS: FUROSEMIDE 40 MG TABLET (FP) PO SCH (09:31)
[2024-10-07 11:09] LABS: ERYTHROCYTE SEDIMENTATION RATE 54 mm/hr (0-30)
[2024-10-07 17:26] VITALS: BP 124/68; PULSE 81; TEMP 99.3
[2024-10-14 18:07] LABS: METHYLMALONIC ACID- 340 nmol/L (0-378)
== END 2024-10-07 18:27 | disposition home or self-care (01) | DRG 291 ==
LOC: JER 13:24 → JERBED 15:41 → J4W 21:39
PROVIDERS: ADMIT Internal Medicine; ATTEND Internal Medicine
DX: I13.0 Hypertensive heart and chronic kidney disease with heart failure and stage 1 through stage 4 chronic kidney disease, or unspecified chronic kidney disease (principal); I50.33 Acute on chronic diastolic (congestive) heart failure; N17.9 Acute kidney failure, unspecified; E87.20 Acidosis, unspecified; N18.4 Chronic kidney disease, stage 4 (severe); K92.1 Melena; M54.9 Dorsalgia, unspecified; R51.9 Headache, unspecified; I95.9 Hypotension, unspecified; E87.5 Hyperkalemia; D64.9 Anemia, unspecified; E53.8 Deficiency of other specified B group vitamins; K59.00 Constipation, unspecified
CPT/HCPCS: 36415; 70450-TC; 71045-TC-FY; 74176-TC; 80048; 80053; 81003; 82272; 82550; 82607; 82728; 82746; 82803; 83540; 83550; 83605; 83735; 83880; 83921; 84100; 84443; 84484; 85025; 85027; 85610; 85651; 85730; 86038; 86140; 86235; 86803; 86850; 86900; 86901; 87086; 87389; 93005; 93010; 93306-TC; 93308; 93970-TC; 97116-GP; 97162-GP; 99291